=== PATIENT | male | born 1970 | race Caucasian/White ===

== ENCOUNTER → 2016-09-05 | Day surgery (SDC) | payer MEDICARE, OTHER ==
[~2016-09-05] MED LIST: AUGM500T7 PO; BACT800T5 PO; BUPIVACAINE HCL PF 0.25% 30 ML VIAL ONE; HYDR-3366 PO; LACTATED RINGER'S 1000 ML INJ 1,000 ML ONE; LORTA10 PO; MIDAZOLAM HCL 2 MG/2 ML VIAL ONE; NEOMYCIN/POLYMYXIN/BACITRACIN OINT 15 GM TUBE ONE; PROPOFOL 200 MG/20 ML AMP IV ONE; SOMA350T PO; ceFAZolin 2 GM PREMIX 50 ML ONE
--- NOTE | 2016-09-08 08:22 | MP ---
cc: [facility] DATE OF SURGERY 09/05/2016 PREOPERATIVE DIAGNOSIS Ingrown toenails bilateral feet one through five. POSTOPERATIVE DIAGNOSIS Ingrown toenails bilateral feet one through five. PROCEDURES PERFORMED Total nail avulsion with chemical matrixectomy of digits one through five bilateral feet. SPECIMEN None ESTIMATED BLOOD LOSS Less than 30 mL COMPLICATIONS None ANESTHESIA General with 0.25% Marcaine plain and 25 cc of local TOURNIQUET TIME A tourniquet was placed around the toes no longer than 5 minutes a piece. This was a Merino drain wrapped around the toes. PLAN OF ACTIVITY PACU, then DC home once stable per same-day surgery criteria JUSTIFICATION FOR THE PROCEDURE This is a pleasant 45-year-old male with ingrown toenails and chronic pain. An attempt at a surgical matrix took place on the bilateral hallux and lesser digits on the right foot however, there appeared to be regrowth of the nails. The patient continued to have pain in multiple digits. He wished for permanent removal of the nails to relieve his pain. We devised a plan to move forward with total nail avulsion with chemical matrixectomy. The patient was educated on the high probability of a post-phenol burn that may take one to two months to heal, possible infection including but not limited to soft tissue and bone and the need for debridement at a later date. PROCEDURE IN DETAIL Under mild sedation, the patient was brought to the operating room and placed on the operating room table in the supine position. Following the induction of LMA general anesthesia, local anesthesia was obtained about the patient's first through fifth digits utilizing standard block fashion bilateral feet. The bilateral feet were then scrubbed, prepped and draped in the usual aseptic fashion. The procedure that is to be dictated was performed and digits one through five exactly the same. A Guille drain was wrapped around the base of the appropriate digit. It was then clamped with the hemostat provide hemostasis. Utilizing a [place] elevator, the nail was then removed from its nail bed in its proximal nail fold. Once this was removed, a thin layer of triple antibiotic wound was placed at the level of the nail distally to protect skin. Next 11/16 applications of phenol was applied utilizing fine Q-tips at the level of the nail matrix. This included the medial, lateral, and central portions of the nail matrix. Once this was performed, it was then flushed with phenol alcohol. Triple antibiotic ointment and nonadherent bandage was applied. Like I said, this was performed of digits one through five. The procedure took just under one hour. Upon relieving all tourniquets, there was good capillary fill time, a bulky bandage was placed. The patient transferred from OR to PACU with all vital signs stable. He will start soaking in warm water and Epsom salts this evening. I will see the patient within 3-5 days. MARYANN Jade/TERESA /3:13 PM /8:07 AM
== END | disposition home or self-care (01) ==
LOC: ESDC 12:43
PROVIDERS: ATTEND Podiatrist Foot & Ankle Surgery
DX: L60.0 Ingrowing nail (principal)
CPT/HCPCS: 00400; 11750; J0690; J2250; J3010; J7120

== ENCOUNTER 2016-10-18 12:33 | Emergency (ER) | payer MEDICARE, OTHER ==
[~2016-10-18] VITALS: Ht 175.3 cm; Wt 73.5 kg
[~2016-10-18 12:33] MED LIST changes: -BACT800T5 PO; -BUPIVACAINE HCL PF 0.25% 30 ML VIAL ONE; -HYDR-3366 PO; -LACTATED RINGER'S 1000 ML INJ 1,000 ML ONE; -MIDAZOLAM HCL 2 MG/2 ML VIAL ONE; -NEOMYCIN/POLYMYXIN/BACITRACIN OINT 15 GM TUBE ONE; -PROPOFOL 200 MG/20 ML AMP IV ONE; -ceFAZolin 2 GM PREMIX 50 ML ONE
[2016-10-18 12:37] VITALS: BP 116/83; PULSE 92; RESP 16; TEMP 97.6; O2SAT 99
[2016-10-18] MEDS ORDERED: SOMA350T PO (12:55)
[2016-10-18] MEDS ORDERED: HYDR-3366 PO (12:55)
--- NOTE | 2016-10-18 13:14 | PD ---
HPI . Skin infection since yesterday Chief Complaint: Skin Problem Time Seen by Provider: 13:14 Travel History International Travel<30 days: No Contact w/Intl Traveler<30days: No Traveled to known affect area: No History of Present Illness HPI 46-year-old male with chronic back problems with DJD and spinal stenosis here with complaints of a right ear abscess for one day. Patient said yesterday he noticed a swelling behind his right earlobe. It was red and warm. Patient and his significant other noticed some drainage and squeezed a great amount of pus out of it. Today they are here to find out what is going on with his ear. He denies any fever, chills, nausea, vomiting or any other symptoms. PFSH Past Medical History Anxiety: Yes Depression: No Cardiovascular Problems: Yes (htn) COPD: Yes (KUSED TO USE A NEBULIZER) Diminished Hearing: No Endocrine: No Immune Disorder: No Musculoskeletal: Yes Neurologic: No Psychiatric: No Reproductive: No Respiratory: No Tetanus Vaccination: Unknown Influenza Vaccination: No Past Surgical History Abdominal Surgery: Yes (DBL INGUINAL HERNIA REPAIR x 5) Other Surgery: Yes (all 10 years toes) Social History Alcohol Use: No Tobacco Use: Yes (1/2 PACK DAILY X 20 YEARS) Substance Use: No Allergies-Medications (Allergen,Severity, Reaction): Coded Allergies: Percocet (Verified Allergy, Mild, VIOLENT, 10/18/16) Uncoded Allergies: ECHINEA (Allergy, Severe, BREATHING PROB, 11/09/13) Reported Meds & Prescriptions Reported Meds & Active Scripts Active Bactrim DS (Sulfamethoxazole-Trimethoprim) 800-160 Mg Tab 1 Tab PO BID Reported [place] (Hydrocodone-Acetaminophen) 10-325 Mg Tab 1 Tab PO Q6H PRN Soma (Carisoprodol) 350 Mg Tab 350 Mg PO QID PRN Review of Systems General / Constitutional: No: Fever Eyes: No: Visual changes HENT: No: Headaches Cardiovascular: No: Chest Pain or Discomfort Respiratory: No: Shortness of Breath Gastrointestinal: No: Abdominal Pain Genitourinary: No: Dysuria Musculoskeletal: No: Pain Skin: Positive Lesions (behind right ear), No Rash Neurologic: No: Weakness Psychiatric: No: Depression Endocrine: No: Polydipsia Hematologic/Lymphatic: No: Easy Bruising Physical Exam Narrative GENERAL: AAO x 3, no acute distress, Well-nourished, well-developed patient. SKIN: Warm and dry. No visible rashes or bruising. There is small area of erythema behind the right ear lobe that appears to be a draining sebaceous cyst. Mild erythema. NO edema. No fluctuance or significant induration. HEAD: Normocephalic and atraumatic. EYES: No scleral icterus. No injection or drainage. ENT: No nasal drainage noted. Mucous membranes pink. Airway patent. NECK: Supple, trachea midline. No JVD. CARDIOVASCULAR: Regular rate and rhythm without murmurs, gallops, or rubs. RESPIRATORY: Breath sounds equal bilaterally. No accessory muscle use. No rhonchi or rales. GASTROINTESTINAL: Abdomen soft, non-tender, nondistended. EXTREMITIES: No cyanosis or edema. BACK: Nontender without obvious deformity. No CVA tenderness. PSYCH: AAO x 3, normal affect. Data Data Last Documented VS Vital Signs Date Time Temp Pulse Resp B/P Pulse Ox O2 Delivery O2 Flow Rate FiO2 10/18/16 13:03 20 10/18/16 12:37 97.6 92 116/83 99 MDM Medical Decision Making Medical Screen Exam Complete: Yes Emergency Medical Condition: Yes Medical Record Reviewed: Yes (aug 2016 toe issues) Differential Diagnosis infected cyst, abscess, cellulitis Narrative Course 46-year-old male with chronic back problems with DJD and spinal stenosis here with complaints of a right ear abscess for one day. Patient said yesterday he noticed a swelling behind his right earlobe. It was red and warm. Patient and his significant other noticed some drainage and squeezed a great amount of pus out of it. Today they are here to find out what is going on with his ear. He denies any fever, chills, nausea, vomiting or any other symptoms. Patient seen and examined. Fortunately him and his significant other remove most of the purulence from this area. No significant induration or fluctuance. This is not an abscess. It appears to be a sebaceous cyst. I explained that this could come back and he may eventually need to have the sac removed. We will cover with Bactrim. Advise follow-up with his primary care provider. Patient verbalized understanding of instructions, questions were answered, and thanked me for their care. I advised them if their condition worsens, please return to the nearest emergency room for further care. Diagnosis Primary Impression: Infected sebaceous cyst of skin Patient Instructions: Cellulitis (ED), General Instructions Additional Instructions: Please return to emergency department if your symptoms return or worsen. Follow up with your primary care provider. Take medications as prescribed. Med/Other Pt SpecificInfo: Prescription(s) given Scripts Sulfamethoxazole-Trimethoprim (Bactrim DS)800-160 Mg Tab1 Tab PO BID #20 TAB Prov:Sintia Bridges DO 10/18/16 Disposition: 01 DISCHARGE HOME Condition: Stable Elizabeth Miranda Oct 18, 2016 13:14
[2016-10-18] MEDS ORDERED: BACT800T5 PO (13:21)
== END 2016-10-18 13:36 | disposition home or self-care (01) ==
LOC: PHEFT 12:33
DX: L72.3 Sebaceous cyst (principal); L08.89 Other specified local infections of the skin and subcutaneous tissue; I10 Essential (primary) hypertension; F17.200 Nicotine dependence, unspecified, uncomplicated; Z87.39 Personal history of other diseases of the musculoskeletal system and connective tissue; Z87.09 Personal history of other diseases of the respiratory system; Z86.59 Personal history of other mental and behavioral disorders
CPT/HCPCS: 99282

== ENCOUNTER 2017-05-23 13:01 | Emergency (ER) | payer MEDICARE, OTHER ==
[~2017-05-23] VITALS: Ht 177.8 cm; Wt 68.0 kg
[~2017-05-23 13:01] MED LIST changes: -AUGM500T7 PO; +BACT800T5 PO; +HYDR-3366 PO; -LORTA10 PO
[2017-05-23 13:02] VITALS: BP 134/80; PULSE 92; RESP 20; TEMP 97.6; O2SAT 98
[2017-05-23] MEDS ORDERED: IOHEXOL 350 MG/ML 10 ML VIAL (for RAD DIAG) IVCONTRAST ONE (13:02)
--- NOTE | 2017-05-23 13:14 | PD ---
Physical Exam Date Seen by Provider: May 23, 2017 Time Seen by Provider: 13:12 Narrative 46 year old male here for infected lymph nodes. Per patient getting worst for the past few days. Ambulates but limping. Pain mainly to left lower abdomen. Was sent her by Dr Quintero for evaluation. Patient requesting "male doctor". Pain is 10/10. Vitals stable in triage. Awaiting bed placement. Data Data Last Documented VS Vital Signs Date Time Temp Pulse Resp B/P (MAP) Pulse Ox O2 Delivery O2 Flow Rate FiO2 05/23/17 13:02 97.6 92 20 134/80 (98) 98 Room Air Orders Orders Complete Blood Count With Diff (05/23/17 13:11) Comprehensive Metabolic Panel (05/23/17 13:11) Lipase (05/23/17 13:11) Lactic Acid (05/23/17 13:11) Urinalysis - C+S If Indicated (05/23/17 13:11) MDM Medical Record Reviewed: Yes Supervised Visit with FRANSICO: Sherwin Faust May 23, 2017 13:14
[2017-05-23 14:34] LABS: AUTOMATED NEUTROPHIL # 8.5 TH/MM3 (1.8-7.7); BASOPHIL # 0.1 TH/MM3 (0-0.2); BASOPHIL % 0.4 % (0.0-2.0); EOSINOPHIL # 0.2 TH/MM3 (0-0.4); EOSINOPHIL % 1.3 % (0.0-4.0); HEMATOCRIT 45.4 % (39.0-51.0); HEMO FLAGS DIFF FINAL; LYMPH % 19.6 % (9.0-44.0); LYMPHOCYTE # 2.4 TH/MM3 (1.0-4.8); MEAN CELL VOLUME 98.9 FL (80.0-100.0); MEAN CORPUSCULAR HEMOGLOBIN 34.1 PG (27.0-34.0); MEAN CORPUSCULAR HGB CONC 34.5 % (32.0-36.0); MONO % 8.7 % (0.0-8.0); PLATELET COUNT 203 TH/MM3 (150-450); RED BLOOD COUNT 4.59 MIL/MM3 (4.50-5.90); RED CELL DISTRIBUTION WIDTH 13.3 % (11.6-17.2); WHITE BLOOD COUNT 12.2 TH/MM3 (4.0-11.0)
[2017-05-23 14:38] LABS: BLOOD, URINE NEG (NEG); GLUCOSE,URINE NEG (NEG); KETONE, URINE NEG (NEG); NITRITE,URINE NEG (NEG); PH, URINE 6.5 (5.0-8.5); URINE COLOR YELLOW (YELLW/STRAW)
[2017-05-23 14:44] LABS: COMMENT (UR) CULT NOT INDICATED; CULTURE IF INDICATED CULT NOT INDICATED
[2017-05-23 15:03] LABS: ANION GAP 5 MEQ/L (5-15); AST (GOT) 23 U/L (15-37); BICARBONATE 28.8 MEQ/L (21.0-32.0); BLOOD UREA NITROGEN 17 MG/DL (7-18); CHLORIDE 104 MEQ/L (98-107); GLOMERULAR FILTRATION RATE 66 ML/MIN (>89); POTASSIUM 4.1 MEQ/L (3.5-5.1); SODIUM (NA) 138 MEQ/L (136-145)
[2017-05-23 15:06] LABS: ALKALINE PHOSPHATASE 72 U/L (45-117); ALT (GPT) 40 U/L (12-78); TOTAL BILIRUBIN ADULT 0.3 MG/DL (0.2-1.0)
--- NOTE | 2017-05-23 15:11 | PD ---
HPI Chief Complaint: Medical Clearance Time Seen by Provider: 14:53 Travel History International Travel<30 days: No Contact w/Intl Traveler<30days: No Traveled to known affect area: No History of Present Illness HPI Patient comes in complaining of left inguinal/abdominal pain but ongoing for 2 and half years after having surgery. Patient states he's had a total of 5 surgeries on this and feels it may be something wrong with the mesh. Patient states approximately 6 months ago he had another surgery that was supposed to cut a nerve to alleviate his pain. Patient states he has no pain in the surface but he feels pain deep to sharp stabbing in nature and radiates into his abdomen. Patient denies any nausea, vomiting, fevers, change in bowel or bladder, or new injury. Patient states over the past week he's noticed a lump that is gotten progressively larger. Patient reports he has been taking his Nekoma and Soma for the pain with trying to "focus" to avoid feeling the pain. PFSH Past Medical History Arthritis: Yes Anxiety: Yes Depression: No Cardiovascular Problems: Yes (htn) COPD: Yes Diminished Hearing: No Endocrine: No Immune Disorder: No Musculoskeletal: Yes Neurologic: No Psychiatric: Yes Reproductive: No Respiratory: No Tetanus Vaccination: < 5 Years Past Surgical History Abdominal Surgery: Yes (DBL INGUINAL HERNIA REPAIR x3 nerve ablation x 2) Other Surgery: Yes (all toenails removed) Social History Alcohol Use: No Tobacco Use: Yes (1/2 PACK DAILY X 20 YEARS) Substance Use: Yes (medical marijuana) Allergies-Medications (Allergen,Severity, Reaction): Coded Allergies: acetaminophen (Unverified Allergy, Mild, VIOLENT, 05/23/17) oxycodone (Unverified Allergy, Mild, VIOLENT, 05/23/17) Uncoded Allergies: ECHINEA (Allergy, Severe, BREATHING PROB, 11/09/13) Reported Meds & Prescriptions Reported Meds & Active Scripts Active Reported Nekoma (Hydrocodone-Acetaminophen) 10-325 Mg Tab 1 Tab PO Q6H PRN Soma (Carisoprodol) 350 Mg Tab 350 Mg PO QID PRN Review of Systems Except as stated in HPI: all other systems reviewed are Neg Physical Exam Narrative GENERAL: Well-developed, well nourished, in no acute distress, and non-ill appearing. SKIN: Focused skin assessment warm and dry. HEAD: Atraumatic. Normocephalic. EYES: Pupils equal and round. EOMI. No scleral icterus. No injection or drainage. ENT: No nasal bleeding or discharge. Mucous membranes pink and moist. NECK: Trachea midline. No JVD. Supple. No nuclear rigidity. CARDIOVASCULAR: Regular rate and rhythm. No murmur appreciated. RESPIRATORY: No accessory muscle use. No respiratory distress. Clear to auscultation. Breath sounds equal bilaterally. GASTROINTESTINAL: Abdomen soft, nondistended, and no guarding. Hepatic and splenic margins not palpable. Normal bowel sounds 4. No pulsatile mass. Patient reports tenderness and left lower quadrant and inguinal area. MUSCULOSKELETAL: No obvious deformities. No clubbing. No cyanosis. No edema. Full range of motion. NEUROLOGICAL: Awake and alert. No obvious cranial nerve deficits. Motor grossly within normal limits. Normal speech. PSYCHIATRIC: Appropriate mood and affect; insight and judgment normal. Data Data Last Documented VS Vital Signs Date Time Temp Pulse Resp B/P (MAP) Pulse Ox O2 Delivery O2 Flow Rate FiO2 05/23/17 18:03 05/23/17 17:45 57 19 97 Room Air 05/23/17 13:02 97.6 Orders Orders Complete Blood Count With Diff (05/23/17 13:11) Comprehensive Metabolic Panel (05/23/17 13:11) Lipase (05/23/17 13:11) Lactic Acid (05/23/17 13:11) Urinalysis - C+S If Indicated (05/23/17 13:11) Ct Abd/Pel W Iv Contrast(Rout) (05/23/17 ) Ondansetron Inj (Zofran Inj) (05/23/17 15:15) Ketorolac Inj (Toradol Inj) (05/23/17 15:15) Sodium Chlor 0.9% 1000 Ml Inj (Ns 1000 M (05/23/17 15:15) Oral Contrast - Adult (05/23/17 15:09) Diatrizoate Liq ( Gastroview Liq) (05/23/17 15:37) Iohexol 350 Inj (Omnipaque 350 Inj) (05/23/17 13:02) Labs Laboratory Tests Test 05/23/17 12:15 05/23/17 14:10 Urine Color YELLOW Urine Turbidity CLEAR Urine pH 6.5 Urine Specific [place] 1.015 Urine Protein NEG mg/dL Urine Glucose (UA) NEG mg/dL Urine Ketones NEG mg/dL Urine Occult Blood NEG Urine Nitrite NEG Urine Bilirubin NEG Urine Urobilinogen LESS THAN 2.0 MG/DL Urine Leukocyte Esterase NEG Urine RBC 2 /hpf Urine WBC LESS THAN 1 /hpf Microscopic Urinalysis Comment CULT NOT INDICATED White Blood Count 12.2 TH/MM3 Red Blood Count 4.59 MIL/MM3 Hemoglobin 15.7 GM/DL Hematocrit 45.4 % Mean Corpuscular Volume 98.9 FL Mean Corpuscular Hemoglobin 34.1 PG Mean Corpuscular Hemoglobin Concent 34.5 % Red Cell Distribution Width 13.3 % Platelet Count 203 TH/MM3 Mean Platelet Volume 7.2 FL Neutrophils (%) (Auto) 70.0 % Lymphocytes (%) (Auto) 19.6 % Monocytes (%) (Auto) 8.7 % Eosinophils (%) (Auto) 1.3 % Basophils (%) (Auto) 0.4 % Neutrophils # (Auto) 8.5 TH/MM3 Lymphocytes # (Auto) 2.4 TH/MM3 Monocytes # (Auto) 1.1 TH/MM3 Eosinophils # (Auto) 0.2 TH/MM3 Basophils # (Auto) 0.1 TH/MM3 CBC Comment DIFF FINAL Differential Comment Blood Urea Nitrogen 17 MG/DL Creatinine 1.18 MG/DL Random Glucose 79 MG/DL Total Protein 7.6 GM/DL Albumin 4.1 GM/DL Calcium Level 9.0 MG/DL Alkaline Phosphatase 72 U/L Aspartate Amino Transf (AST/SGOT) 23 U/L Alanine Aminotransferase (ALT/SGPT) 40 U/L Total Bilirubin 0.3 MG/DL Sodium Level 138 MEQ/L Potassium Level 4.1 MEQ/L Chloride Level 104 MEQ/L Carbon Dioxide Level 28.8 MEQ/L Anion Gap 5 MEQ/L Estimat Glomerular Filtration Rate 66 ML/MIN Lactic Acid Level 1.3 mmol/L Lipase 143 U/L MDM Medical Decision Making Medical Screen Exam Complete: Yes Emergency Medical Condition: Yes Interpretation(s) CT abdomen and pelvis read by the radiologist shows: No acute CT findings in the abdomen or pelvis. Tiny nonobstructing right kidney stone Differential Diagnosis Incarcerated inguinal hernia, abscess, acute on chronic pain, chronic pain, UTI , electrolyte abnormality, hernia, other Narrative Course The patient presented with nonspecific abdominal pain. There was no significant history of vomiting or diarrhea and no fever. The patient appeared comfortable, well hydrated and the abdominal exam was mildly tender without guarding or rebound and no focal tenderness to me. Laboratory and CT evaluation revealed no significant abnormalities. There was no evidence of an acute, surgical abdomen at this time. There was no clinical evidence to support appendicitis, bowel obstruction, cholecystitis/cholelithiasis, pancreatitis, perforation of gastric ulcer, colitis, diverticulitis, bacterial peritonitis, obstruction, volvulus, hernial incarceration or strangulation at this time. There was no evidence to support vascular pathology such as AAA, mesenteric ischemia. There was also no clinical evidence by history, exam or risk factors to suggest atypical presentation of cardiac disease such as ACS, AMI or atypical angina. No evidence to suggest genitourinary etiology as well. Clinical picture was discussed with the patient, as well as plan of care. The patient was instructed to follow up with their physician. Abdominal pain warnings were discussed with the patient. The patient is to return if worsens, pain worsens or changes, develop fever, inability to tolerate fluids with or without vomiting, unable to establish follow up or as needed. The patient agrees with plan. Patient in no obvious distress upon re-evaluation. All pertinent laboratory/ Radiology result(s) discussed with patient. Discussed patient with Dr. Brooks prior to discharge, who is in agreement with plan of care and disposition. Any questions/concerns in reference to patient diagnosis/condition discussed and clarified prior to patient's discharge. Reinforced sheer importance of close follow up with patient's primary physician or primary care clinic. Instructed patient to return to ED immediately, if symptoms return/worsen. Patient showed understanding of above instructions. Further instructions and recommendations were detailed in discharge paperwork. Patient ambulated without difficulty out of ED at discharge. Diagnosis Primary Impression: Left inguinal pain Patient Instructions: General Instructions, Groin Pain (ED) Additional Instructions: Follow-up with your primary care physician and/or pain management doctor for possible adjustment of your pain medication. Follow up with general surgeon for possible surgical intervention if desired. Return to the emergency department if symptoms get worse. Disposition: 01 DISCHARGE HOME Condition: Stable Kleber Turner May 23, 2017 15:11
[2017-05-23] MEDS ORDERED: ONDANSETRON HCL 4 MG/2 ML VIAL IV PUSH ONE (15:15)
[2017-05-23] MEDS ORDERED: SODIUM CHLOR 0.9% 1000 ML INJ 1,000 ML IV ONE (15:15)
[2017-05-23] MEDS ORDERED: KETOROLAC TROMETHAMINE 30 MG/ML (IVP) VIAL IV PUSH ONE (15:15)
[2017-05-23] MEDS ORDERED: DIATRIZOATE MEGLUM/DIATRIZOATE SOD 9 ML CUP ONE (15:37)
[2017-05-23 16:00] VITALS: BP 113/77; PULSE 54; RESP 20; O2SAT 97
--- NOTE | 2017-05-23 16:59 | RADRPT ---
EXAM DATE/TIME: 05/23/2017 16:30 [facility] COMPARISON: No previous studies available for comparison. INDICATIONS : Diffuse abdomen pain in lower region. IV CONTRAST: 86 cc Omnipaque 350 (iohexol) IV ORAL CONTRAST: Prescribed oral contrast ingested. RADIATION DOSE: 9.96 CTDIvol (mGy) MEDICAL HISTORY : Hypertension. Chronic obstructive pulmonary disease. SURGICAL HISTORY : Dbl Inguinal Hernia Repair x3, Nerve Ablation x2 ENCOUNTER: Initial ACUITY: 1 day PAIN SCALE: 8/10 LOCATION: Bilateral lower quadrant TECHNIQUE: Volumetric scanning of the abdomen and pelvis was performed. Using automated exposure control and ad justment of the mA and/or kV according to patient size, radiation dose was kept as low as reasonably achievable to obtain optimal diagnostic quality images. DICOM format image data is available electro nically for review and comparison. FINDINGS: LOWER LUNGS: The visualized lower lungs are clear. LIVER: Homogeneous density without lesion. There is no dilation of the biliary tree. No calcified gallston es. SPLEEN: Normal size without lesion. PANCREAS: Within normal limits. KIDNEYS: There is a small nonobstructing calculus in the lower pole collecting system of the right kidney. No suspicious mass or hydronephrosis ADRENAL GLANDS: Within normal limits. VASCULAR: There is no aortic aneurysm. BOWEL/MESENTERY: The stomach, small bowel, and colon demonstrate no acute abnormality. There is no free intraperitone al air or fluid. ABDOMINAL WALL: Within normal limits. RETROPERITONEUM: There is no lymphadenopathy. BLADDER: No wall thickening or mass. REPRODUCTIVE: Within normal limits. INGUINAL: Prior mesh inguinal hernia repairs MUSCULOSKELETAL: Within normal limits for patient age. CONCLUSION: No acute CT findings in the abdomen or pelvis. Tiny nonobstructing right kidney stone Salvador Purcell MD on May 23, 2017 at 16:53 Board Certified Radiologist. This report was verified electronically.
[2017-05-23 17:45] VITALS: BP 129/86; PULSE 57; RESP 19; O2SAT 97
== END 2017-05-23 18:04 | disposition home or self-care (01) ==
LOC: NEPC 13:01
DX: R10.32 Left lower quadrant pain (principal); R59.0 Localized enlarged lymph nodes; Z98.890 Other specified postprocedural states; I10 Essential (primary) hypertension; J44.9 Chronic obstructive pulmonary disease, unspecified; M19.90 Unspecified osteoarthritis, unspecified site; F41.9 Anxiety disorder, unspecified; F17.200 Nicotine dependence, unspecified, uncomplicated
CPT/HCPCS: 74177; 80053; 81001; 83605; 83690; 85025; 96361; 96374; 96375; 99285; J1885; J2405; J7030; Q9963; Q9967